=== PATIENT | female | born 1930 | race Caucasian/White ===

== ENCOUNTER 2017-07-29 10:03 | Inpatient (IN) | payer OTHER ==
[~2017-07-29] VITALS: Ht 154.9 cm; Wt 76.0 kg
[2017-07-29] MEDS ORDERED: SODIUM CHLORIDE 0.9% 1,000 ML IV ONE ×2 (10:15→15:15)
[2017-07-29 11:50] VITALS: BP 127/58
[2017-07-29 13:34] LABS: Lactic Acid w/Reflex 2.7 mmol/L (0.4-2.0)
[2017-07-29 14:19] LABS: Hematocrit 44.6 % (36.0-46.0); Hemoglobin 14.6 g/dL (12.2-16.2); Mean Corpuscular Hemoglobin 31.1 pg (28.0-32.0); Mean Corpuscular Hgb Conc. 32.7 g/dL (32.0-36.0); Platelet Count (auto) 267 10^3/uL (140-450); Red Blood Cells 4.69 10^6/uL (4.0-5.20); Red Cell Distribution Width 14.1 % (11.8-14.3)
[2017-07-29 14:23] LABS: Band Neutrophils % (manual) 0; Basophils % (manual) 0 (0.0-2.0); Blast Cells 0; Eosinophils % (manual) 0 (0-7); Metamyelocytes % 0; Myelocytes % 0; Promyelocytes % 0; Reactive Lymphocytes 0; White Blood Cell 34.9 10^3/uL (4.4-10.8)
[2017-07-29 14:33] LABS: Urine Bacteria MANY /hpf (None Seen); Urine Blood TRACE /uL (Negative); Urine Mucus FEW (None Seen); Urine WBC 9 /hpf (0 - 5)
[2017-07-29 14:34] LABS: INR 1.19 (0.9-1.15); Partial Thromboplastin Time 25.6 sec (22.64-33.71)
[2017-07-29 15:00] LABS: Lymphocytes % (manual) 3 (10.0-50.0); Monocytes % (manual) 2 (0-12)
[2017-07-29] MEDS ORDERED: VANCOMYCIN 1GM/250ML 250 ML IV ONE (15:00)
[2017-07-29] MEDS ORDERED: PIPERACILLIN-TAZOB 3.375GM 50 ML IV ONE (15:00)
[2017-07-29] MEDS ORDERED: VANCOMYCIN PER PHARMACY 0 MG IV SCH (15:15)
[2017-07-29 15:28] LABS: Anion Gap 11 (5-15); Blood Urea Nitrogen 61 mg/dL (7-18); Carbon Dioxide 24 mmol/L (21-32); Chloride 116 mmol/L (98-107); Glucose 149 mg/dL (74-106); Sodium 151 mmol/L (136-145)
[2017-07-29 15:29] LABS: Alkaline Phosphatase 63 U/L (45-117); Aspartate Aminotransferase 23 U/L (15-37); BUN/Creatinine Ratio 44.5; GFR African American 47 mL/min; GFR Non-African American 39 mL/min
[2017-07-29 15:30] LABS: Alanine Aminotransferase 20 U/L (13-56); Albumin 2.7 g/dL (3.4-5.0); Bilirubin, Total 1.3 mg/dL (0.2-1.0); Blood Alcohol < 3.0 mg/dL (0-5); Calcium 8.2 mg/dL (8.5-10.1); Total Protein 6.4 g/dL (6.4-8.2)
[2017-07-29 15:33] LABS: Potassium 2.4 mmol/L (3.5-5.1)
[2017-07-29] MEDS ORDERED: ACETAMINOPHEN 325 MG TAB PO PRN (15:45)
[2017-07-29] MEDS ORDERED: MORPHINE SULF INJ 2 MG/ML SYRINGE 1ML IV PRN (15:45)
[2017-07-29] MEDS ORDERED: DOCUSATE SOD 100 MG CAP PO PRN (15:45)
[2017-07-29] MEDS ORDERED: DEXTROSE (50%) 50ML SYRG IV PRN (15:45)
[2017-07-29] MEDS ORDERED: ONDANSETRON HCL 4 MG/2 ML VIAL IV PRN (15:45)
[2017-07-29] MEDS ORDERED: HYDROcodone-ACET 5/325MG TAB PO PRN (15:45)
[2017-07-29] MEDS ORDERED: POTASSIUM CHLORIDE 40 MEQ, LIDOCAINE 1% (LOCAL ANESTH.) 4 ML in SODIUM CHL 0.9% 100 ML IV ONE (15:45)
[2017-07-29] MEDS ORDERED: MEGESTROL ACET 400MG/10ML ORAL SUSP PO ONE (16:00)
[2017-07-29] MEDS ORDERED: MULTIPLE VITAMIN TAB PO ONE (16:00)
[2017-07-29] MEDS ORDERED: ZINC SULFATE 220 MG CAP PO ONE (16:00)
[2017-07-29] MEDS: SODIUM CHLORIDE 0.9% 1,000 ML IV SCH (16:11)
[2017-07-29 16:28] LABS: Alcohol, Urine < 3.0 mg/dL (0-5); Amphetamine Screen, Urine NEGATIVE (NEGATIVE); Barbiturate Scree,Urine NEGATIVE (NEGATIVE); Benzodiazephine Screen, Urine NEGATIVE (NEGATIVE); Cannabinoid Screen, Urine NEGATIVE (NEGATIVE); Cocaine Screen, Urine NEGATIVE (NEGATIVE); Opiate Scree,Urine NEGATIVE (NEGATIVE); Phencyclidine Screen, Urine NEGATIVE (NEGATIVE)
[2017-07-29] MEDS: InsuLIN REG 1unit/0.01ml Soln (100units/ml) SC SCH ×2 (17:00→22:02)
[2017-07-29] MEDS: ACCU-CHEK COMFORT CURVE STRIP VI SCH ×2 (17:10→21:51)
[2017-07-29] MEDS: D5W/SOD CHL 0.45% 1,000 ML IV SCH (17:51)
[2017-07-29] MEDS: FAMOTIDINE 20 MG TAB PO SCH (17:52)
[2017-07-29] MEDS: Boost Glucose Control 8 Ounces PO SCH ×2 (17:52→21:52)
[2017-07-29 20:43] LABS: Potassium 3.2 mmol/L (3.5-5.1)
[2017-07-29 20:44] LABS: BUN/Creatinine Ratio 43.1; Calcium 8.2 mg/dL (8.5-10.1)
[2017-07-29] MEDS: PIPERACILLIN-TAZOB 2.25GM 50 ML IV SCH (20:57)
[2017-07-29] MEDS: MEGESTROL ACET 400MG/10ML ORAL SUSP PO SCH (22:00)
[2017-07-29] MEDS: ASCORBIC ACID 500 MG TAB PO SCH (22:00)
[2017-07-29 23:50] VITALS: BP 127/58
[2017-07-30] MEDS: SODIUM CHLORIDE 0.9% 1,000 ML IV SCH (00:01)
[2017-07-30] MEDS: D5W/SOD CHL 0.45% 1,000 ML IV SCH (00:13)
[2017-07-30] MEDS: PIPERACILLIN-TAZOB 2.25GM 50 ML IV SCH ×4 (03:38→20:56)
[2017-07-30 05:00] VITALS: BP 110/74
[2017-07-30] MEDS: Boost Glucose Control 8 Ounces PO SCH ×4 (05:15→22:00)
[2017-07-30] MEDS: InsuLIN REG 1unit/0.01ml Soln (100units/ml) SC SCH (06:33)
[2017-07-30] MEDS: ACCU-CHEK COMFORT CURVE STRIP VI SCH (06:33)
[2017-07-30 07:11] LABS: Hematocrit 43.3 % (36.0-46.0); Hemoglobin 14.4 g/dL (12.2-16.2); Mean Corpuscular Hemoglobin 31.2 pg (28.0-32.0); Mean Corpuscular Hgb Conc. 33.1 g/dL (32.0-36.0); Mean Corpuscular Volume 94.2 fL (80.0-100.0); Platelet Count (auto) 201 10^3/uL (140-450); Red Cell Distribution Width 14.1 % (11.8-14.3)
[2017-07-30 07:15] LABS: Basophils % (manual) 0 (0.0-2.0); Blast Cells 0; Eosinophils % (manual) 0 (0-7); Metamyelocytes % 0; Myelocytes % 0; Promyelocytes % 0; Reactive Lymphocytes 0
[2017-07-30 07:32] LABS: Albumin 2.5 g/dL (3.4-5.0); BUN/Creatinine Ratio 55.1; Bilirubin, Total 1.2 mg/dL (0.2-1.0); Calcium 8.2 mg/dL (8.5-10.1); Total Protein 6.1 g/dL (6.4-8.2)
[2017-07-30 07:35] LABS: Potassium 2.5 mmol/L (3.5-5.1)
[2017-07-30] MEDS ORDERED: POTASSIUM CHLORIDE 40 MEQ, LIDOCAINE 1% (LOCAL ANESTH.) 4 ML in SODIUM CHL 0.9% 100 ML IV ONE (08:15)
[2017-07-30] MEDS ORDERED: POTASSIUM CHL 20MEQ/100ML 100 ML IV SCH (08:15)
[2017-07-30 08:48] VITALS: BP 126/71
[2017-07-30] MEDS: D5W 5% 1,000 ML IV SCH ×2 (09:06→20:53)
[2017-07-30] MEDS: ZINC SULFATE 220 MG CAP PO SCH (10:00)
[2017-07-30] MEDS: FAMOTIDINE 20 MG TAB PO SCH (10:00)
[2017-07-30] MEDS: MULTIPLE VITAMIN TAB PO SCH (10:00)
[2017-07-30] MEDS: METOPROLOL TARTRATE 25 MG TAB PO SCH ×2 (10:00→22:00)
[2017-07-30] MEDS ORDERED: ENOXAPARIN SOD 100 MG/1 ML SYRINGE SC SCH (10:00)
[2017-07-30] MEDS: ASCORBIC ACID 500 MG TAB PO SCH ×2 (10:00→22:00)
[2017-07-30] MEDS: ASPirin-EC 81 mg tab PO SCH (10:00)
[2017-07-30] MEDS: MEGESTROL ACET 400MG/10ML ORAL SUSP PO SCH ×2 (10:00→22:00)
[2017-07-30] MEDS ORDERED: POTASSIUM CHL 20MEQ/50ML 0 ML IV ONE (10:05)
[2017-07-30] MEDS ORDERED: METOPROLOL TARTRATE 25 MG TAB ONE (10:10)
[2017-07-30] MEDS ORDERED: POTASSIUM CHL 20MEQ/50ML 50 ML IV ONE ×2 (10:15→12:43)
[2017-07-30 10:31] LABS: Lactic Acid w/Reflex 2.3 mmol/L (0.4-2.0)
[2017-07-30] MEDS: POTASSIUM CHL 20MEQ/50ML 50 ML IV SCH ×3 (12:50→23:47)
[2017-07-30] MEDS ORDERED: ENOXAPARIN SOD 100 MG/1 ML SYRINGE SC ONE (12:54)
[2017-07-30] MEDS: ENOXAPARIN SOD 100 MG/1 ML SYRINGE SC SCH (12:58)
[2017-07-30 13:00] VITALS: BP 120/74
[2017-07-30 14:53] LABS: Band Neutrophils % (manual) 4; Lymphocytes % (manual) 2 (10.0-50.0); Monocytes % (manual) 1 (0-12)
[2017-07-30] MEDS: VANCOMYCIN 500 MG in D5W 5% 100 ML IV SCH (16:32)
[2017-07-30 17:04] VITALS: BP 108/57
[2017-07-30] MEDS: MORPHINE SULF INJ 2 MG/ML SYRINGE 1ML IV PRN (18:45)
[2017-07-30 21:00] VITALS: BP 110/61
[2017-07-30] MEDS: ATORVASTATIN 20 MG TAB PO SCH (22:00)
[2017-07-31] MEDS: MORPHINE SULF INJ 2 MG/ML SYRINGE 1ML IV PRN ×3 (00:11→15:46)
[2017-07-31] MEDS: PIPERACILLIN-TAZOB 2.25GM 50 ML IV SCH ×3 (02:45→15:39)
[2017-07-31 05:37] VITALS: BP 115/71
[2017-07-31] MEDS: Boost Glucose Control 8 Ounces PO SCH ×4 (06:00→22:00)
[2017-07-31] MEDS: D5W 5% 1,000 ML IV SCH ×2 (06:29→17:36)
[2017-07-31 07:37] LABS: Basophils # (auto) 0 uL; Basophils % (auto) 0.1 % (0.0-2.0); Eosinophils # (auto) 0 uL; Hematocrit 41.8 % (36.0-46.0); Hemoglobin 13.6 g/dL (12.2-16.2); Lymphocytes # (auto) 0.6 uL; Lymphocytes % (auto) 2.9 % (10.0-50.0); Mean Corpuscular Hemoglobin 30.7 pg (28.0-32.0); Mean Corpuscular Hgb Conc. 32.6 g/dL (32.0-36.0); Monocytes # (auto) 0.4 uL; Monocytes % (auto) 2.1 % (0.0-12.0); Neutrophils # (auto) 19.4 uL; Neutrophils % (auto) 94.9 % (37.0-80.0); Nucleated Red Blood Cells % 0.1 %; Platelet Count (auto) 162 10^3/uL (140-450); Red Blood Cells 4.45 10^6/uL (4.0-5.20); Red Cell Distribution Width 14.5 % (11.8-14.3); White Blood Cell 20.4 10^3/uL (4.4-10.8)
[2017-07-31 07:42] LABS: INR 1.14 (0.9-1.15); Partial Thromboplastin Time 34.1 sec (22.64-33.71); Prothrombin Time 12.4 sec (9.37-12.3)
[2017-07-31 07:47] LABS: Lactic Acid w/Reflex 2.3 mmol/L (0.4-2.0)
[2017-07-31 08:03] LABS: Albumin 2.1 g/dL (3.4-5.0); Bilirubin, Total 0.9 mg/dL (0.2-1.0); Magnesium 2.6 mg/dL (1.6-2.6); Potassium 3.7 mmol/L (3.5-5.1); Total Protein 5.7 g/dL (6.4-8.2)
[2017-07-31 08:23] VITALS: BP 105/64
[2017-07-31] MEDS: ENOXAPARIN SOD 100 MG/1 ML SYRINGE SC SCH (09:20)
[2017-07-31] MEDS: METOPROLOL TARTRATE 25 MG TAB PO SCH ×2 (09:30→20:19)
[2017-07-31] MEDS: ZINC SULFATE 220 MG CAP PO SCH (09:30)
[2017-07-31] MEDS: ASPirin-EC 81 mg tab PO SCH (09:30)
[2017-07-31] MEDS: MULTIPLE VITAMIN TAB PO SCH (09:31)
[2017-07-31] MEDS: FAMOTIDINE 20 MG TAB PO SCH (09:31)
[2017-07-31] MEDS: ASCORBIC ACID 500 MG TAB PO SCH ×2 (09:31→22:00)
[2017-07-31] MEDS: MEGESTROL ACET 400MG/10ML ORAL SUSP PO SCH ×2 (09:31→22:00)
[2017-07-31 13:13] VITALS: BP 115/66
[2017-07-31] MEDS ORDERED: LORazepam 2MG/ML-1ML VIAL IV PRN (16:45)
[2017-07-31] MEDS ORDERED: HYDROmorphone HCL 2 MG/ML VL IV PRN (16:45)
[2017-07-31 16:54] VITALS: BP 104/62
[2017-07-31] MEDS: VANCOMYCIN 500 MG in D5W 5% 100 ML IV SCH (17:12)
[2017-07-31] MEDS: PIPERACILLIN-TAZOB 3.375GM 50-150ml IV SCH (19:15)
[2017-07-31 22:00] VITALS: BP 99/63
[2017-07-31] MEDS: ATORVASTATIN 20 MG TAB PO SCH (22:00)
[2017-08-01] MEDS: D5W 5% 1,000 ML IV SCH ×2 (04:55→15:50)
[2017-08-01 05:00] VITALS: BP 121/79
[2017-08-01] MEDS: PIPERACILLIN-TAZOB 3.375GM 50-150ml IV SCH ×3 (05:52→12:00)
[2017-08-01] MEDS: Boost Glucose Control 8 Ounces PO SCH ×2 (06:00→12:00)
[2017-08-01 06:24] LABS: Basophils # (auto) 0 uL; Basophils % (auto) 0.1 % (0.0-2.0); Eosinophils # (auto) 0 uL; Eosinophils % (auto) 0.1 % (0.0-7.0); Hematocrit 40.5 % (36.0-46.0); Hemoglobin 13.5 g/dL (12.2-16.2); Lymphocytes # (auto) 0.6 uL; Lymphocytes % (auto) 3.5 % (10.0-50.0); Mean Corpuscular Hemoglobin 31.3 pg (28.0-32.0); Mean Corpuscular Hgb Conc. 33.3 g/dL (32.0-36.0); Mean Corpuscular Volume 93.9 fL (80.0-100.0); Monocytes # (auto) 0.5 uL; Monocytes % (auto) 2.7 % (0.0-12.0); Neutrophils # (auto) 16.8 uL; Neutrophils % (auto) 93.6 % (37.0-80.0); Platelet Count (auto) 143 10^3/uL (140-450); Red Blood Cells 4.31 10^6/uL (4.0-5.20); Red Cell Distribution Width 14.2 % (11.8-14.3); White Blood Cell 17.9 10^3/uL (4.4-10.8)
[2017-08-01 08:44] VITALS: BP 135/85
[2017-08-01] MEDS ORDERED: ENOXAPARIN SOD 80 MG/0.8ML SYRINGE SC SCH (10:00)
[2017-08-01] MEDS: ASPirin-EC 81 mg tab PO SCH (10:04)
[2017-08-01] MEDS: MULTIPLE VITAMIN TAB PO SCH (10:04)
[2017-08-01] MEDS: ASCORBIC ACID 500 MG TAB PO SCH (10:04)
[2017-08-01] MEDS: FAMOTIDINE 20 MG TAB PO SCH (10:04)
[2017-08-01] MEDS: MEGESTROL ACET 400MG/10ML ORAL SUSP PO SCH (10:04)
[2017-08-01] MEDS: ZINC SULFATE 220 MG CAP PO SCH (10:04)
[2017-08-01] MEDS: METOPROLOL TARTRATE 25 MG TAB PO SCH ×2 (10:05→11:05)
[2017-08-01 12:10] VITALS: BP 111/65
[2017-08-01 16:29] VITALS: BP 126/77
== END 2017-08-01 18:15 | disposition hospice, home (50) | DRG 871 ==
LOC: ER 10:03 → OVERFLOW 10:04 → EDBD 10:04 → CENTRAL 23:20
PROVIDERS: ADMIT Internal Medicine; ATTEND Family Medicine
DX: A41.9 Sepsis, unspecified organism (principal); I21.4 Non-ST elevation (NSTEMI) myocardial infarction; L89.154 Pressure ulcer of sacral region, stage 4; E44.0 Moderate protein-calorie malnutrition; N17.9 Acute kidney failure, unspecified; G92 Toxic encephalopathy; E87.0 Hyperosmolality and hypernatremia; I48.91 Unspecified atrial fibrillation; I48.92 Unspecified atrial flutter; N39.0 Urinary tract infection, site not specified; I11.9 Hypertensive heart disease without heart failure; E86.0 Dehydration; E83.51 Hypocalcemia; E87.6 Hypokalemia; I70.0 Atherosclerosis of aorta; R73.9 Hyperglycemia, unspecified; B95.62 Methicillin resistant Staphylococcus aureus infection as the cause of diseases classified elsewhere; N18.3 Chronic kidney disease, stage 3 (moderate); F03.90 Unspecified dementia, unspecified severity, without behavioral disturbance, psychotic disturbance, mood disturbance, and anxiety; Z51.5 Encounter for palliative care; Z66 Do not resuscitate; Z83.3 Family history of diabetes mellitus; Z71.3 Dietary counseling and surveillance
CPT/HCPCS: 36415; 51702; 70450; 71045; 80048; 80053; 80061; 80202; 80307; 80320; 81001; 82140; 82962; 83036; 83605; 83735; 83880; 84443; 84484; 85007; 85025; 85027; 85610; 85730; 87040; 87077; 87081; 87086; 87088; 87186; 87205; 92610; 93005; 93306; 93886; 96361; 96374; 97163; J1815; J2001; J2543; J3480; J7060